=== PATIENT | male | born 1960 | race Caucasian/White ===

== ENCOUNTER 2016-12-22 09:53 | Emergency (ER) | payer OTHER ==
[~2016-12-22] VITALS: Ht 182.9 cm; Wt 90.0 kg
[2016-12-22] MEDS ORDERED: KETOROLAC TROMETHAMINE 60 MG/2 ML VIAL IM ONE (11:15)
[2016-12-22 12:46] VITALS: BP 140/77
== END 2016-12-22 12:49 | disposition home or self-care (01) ==
LOC: EMS 09:56
DX: S40.011A Contusion of right shoulder, initial encounter (principal); F17.210 Nicotine dependence, cigarettes, uncomplicated; W06.XXXA Fall from bed, initial encounter; Y93.89 Activity, other specified; Y92.89 Other specified places as the place of occurrence of the external cause; Y99.8 Other external cause status
CPT/HCPCS: 73030; 96372; 99284; J1885

== ENCOUNTER 2018-03-05 17:41 | Emergency (ER) | payer OTHER ==
[~2018-03-05] VITALS: Ht 182.9 cm; Wt 89.0 kg
[2018-03-05 18:54] VITALS: BP 144/86
== END 2018-03-05 19:03 | disposition home or self-care (01) ==
LOC: EMS 17:42
DX: B35.4 Tinea corporis (principal); F17.210 Nicotine dependence, cigarettes, uncomplicated
CPT/HCPCS: 99283